=== PATIENT | female | born 1975 | race Caucasian/White ===

== ENCOUNTER → 2016-09-02 | Outpatient (CLI) | payer OTHER | END | disposition home or self-care (01) | LOC: C.PAPS 14:55 | PROVIDERS: ATTEND Obstetrics & Gynecology | DX: Z01.419 Encounter for gynecological examination (general) (routine) without abnormal findings (principal) ==

== ENCOUNTER 2018-03-26 10:43 | Emergency (ER) | payer OTHER ==
[~2018-03-26] VITALS: Ht 162.6 cm; Wt 93.0 kg
[2018-03-26 10:45] VITALS: TEMP 36.9; Ht 162.6 cm; Wt 93.0 kg
[2018-03-26] MEDS ORDERED: MULT-1027 PO (10:54)
--- NOTE | 2018-03-26 11:18 | DIAGNOSTIC IMAGING REPORT ---
R ANKLE MIN 3 VIEWS ROUTINE CLINICAL HISTORY: D1 trauma. Pain. COMPARISON: None. DISCUSSION: Small heel spur. Ossification Achilles tendon insertion. The remaining bony structures are unremarkable. There is no evidence for soft tissue swelling. IMPRESSION: Heel spur. No acute bony abnormality. The above report was generated using voice recognition software. It may contain grammatical, syntax or spelling errors. Electronically signed by: Fernando Wang M.D. 03/26/2018 11:17 AM Dictated Date/Time: 03/26/2018 11:15 AM
[2018-03-26 11:33] VITALS: BP 129/99; PULSE 83; O2SAT 99
--- NOTE | 2018-03-27 06:42 | EMERGENCY ROOM VISIT NOTE ---
ED Visit Note First contact with patient: 10:57 Chief Complaint: Right ankle pain. History of Present Illness: Ms. Patton is a 42-year-old white female who is brought into the ED via wheelchair accompanied by male friend complaining of anterior right ankle pain. Historically patient reports she has had no previous significant injuries or surgeries to the right ankle. Patient reports she was at home and walking up a small incline to pick some garlic in her home garden. She slipped on wet grass and twisted her ankle and fell to the ground. She reports while she was falling she heard a snapping sensation in the anterior right ankle and has not been able to ambulate on her right ankle since that time. Currently she is complaining of a sharp pain over the anterior aspect of the lateral malleolus and talus. She rates her discomfort 6/10. Her pain is nonradiating. Her pain worsens with palpation, ambulation and inversion. She has not identified any alleviating factors related to the pain. She has not taken any medication for pain prior to arrival at the hospital. Associated with the pain she reports she is having tingling sensations in her toes. She denies any lightheaded or dizziness before the fall, striking her head at the time of the fall or loss of consciousness, signs of head injury since the fall, back pain, hip pain, knee pain, lower leg pain, foot pain, leg weakness. Review of Systems: As noted above in history of present illness. Past Medical History: Status post section 3. Current Medications: Multivitamins. Allergies to Medications: Patient denies. Social History: Patient is not employed; she feels safe in her home environment ; she denies tobacco use admits to social alcohol use. Physical Examination: Vital Signs: Date Time Temp Pulse Resp B/P (MAP) Pulse Ox O2 Delivery O2 Flow Rate FiO2 03/26/18 11:33 83 18 129/99 99 03/26/18 10:45 36.9 91 20 139/92 98 Room Air GENERAL: 42-year-old female in mild distress due to pain, nontoxic-appearing, afebrile and hemodynamically stable. NEUROLOGICAL: Awake, alert and oriented to person, place and time. Answering questions appropriately and following commands. Normal gait. Good hand eye coordination. No focal motor sensory deficits. SKIN: Warm, dry and pink. No soft tissue trauma noted. RIGHT LOWER EXTREMITY: No gross bony deformity. No tenderness in the hip, knee , lower leg. Moderate tenderness over the lateral malleolus and anterior talus without bony deformity, swelling or ecchymosis. Difficult to evaluate her ligamentous structures due to pain; she does have pain with all movement and stretching of the ligamentous structures. There is also a decreased range of motion in inversion and plantar flexion due to pain. I did stabilize her ankles and she had full range of motion in flexion and extension of all the toes. Throughout the rest of the foot the skin was warm and pink and capillary refill was brisk. She was able to distinguish light sensations to all dermatomes of the foot. ED Course: Patient is assessed as noted above. Patient's medication list was reviewed. Right Ankle X-Rays: Were read by myself and the radiologist showing no fractures or dislocations. I do note a small heel spur and an ossification at the insertion of the Achilles tendon; there was no tender in either of these areas. Patient was given ice for pain and comfort; she was offered pain medications and refused. Patient was placed in a gel splint and on nonweightbearing crutches. Patient was educated about today's findings and instructed on her treatment plan ; she verbalized understanding and agreement with this plan. Clinical Impression: Right ankle pain. Probable ankle sprain. Decision-Making: Initially my differential diagnosis I considered fracture, sprain, ligamentous strain, dislocation, contusion and other causes. Disposition: Patient discharged home in stable condition accompanied by her ; prior to departure she was reassessed and subjectively reported she was feeling slightly worse and rated her discomfort 8/10. Plan: Comfort measures including rest, ice, elevation, alternating ibuprofen and acetaminophen, splint and crutch use were discussed with the patient. Patient was encouraged to follow-up with orthopedics if no better in 7-10 days. Patient was encouraged return to the ED for worsening/uncontrolled pain, uncontrolled swelling, numbness/weakness or any new/concerning symptoms.
== END 2018-03-26 11:35 | disposition home or self-care (01) ==
LOC: C.EDB 10:44 → C.EDD 11:35
DX: M25.571 Pain in right ankle and joints of right foot (principal); W01.0XXA Fall on same level from slipping, tripping and stumbling without subsequent striking against object, initial encounter; Y92.017 Garden or yard in single-family (private) house as the place of occurrence of the external cause